=== PATIENT | female | born 1965 | race Caucasian/White ===

== ENCOUNTER 2016-11-16 22:18 | Emergency (ER) | payer OTHER ==
[~2016-11-16] VITALS: Ht 167.6 cm; Wt 86.2 kg
[~2016-11-16 22:18] MED LIST: TAMIFLU 75MG75 MG PO; TESSALON PERLE100 MG PO
--- NOTE | 2016-11-16 23:17 | RADIOLOGY REPORT ---
EXAMINATION: XR TOES, RIGHT CLINICAL INFORMATION: Pain and swelling, fifth toe injury COMPARISON: None TECHNIQUE: 3 views of the right toes were obtained. FINDINGS: Articular alignment is anatomic. On the oblique view there is suggestion of cortical disruption at the base of the fifth distal phalanx, raising concern for a minimally displaced fracture in the setting of trauma. There is chronic appearing cortical irregularity at the head of the fifth proximal phalanx. IMPRESSION: Suggestion of a minimally displaced fracture at the base of the fifth distal phalanx.
--- NOTE | 2016-11-16 23:41 | ED ANKLE/FOOT INJURY COMPLAINT ---
History of Present Illness General Chief Complaint: Foot or Ankle Injury Stated Complaint: R FOOT AND TOE INJURY Source: patient, old records Exam Limitations: no limitations Vital Signs & Intake/Output Vital Signs & Intake/Output Vital Signs Date Time Temp Pulse Resp B/P B/P Pulse O2 O2 Flow FiO2 Mean Ox Delivery Rate 11/16 2355 98.1 72 17 114/74 97 Room Air 11/16 2221 98.4 71 18 115/75 97 Room Air ED Intake and Output 11/17 0000 11/16 1200 Intake Total Output Total Balance Patient 190 lb Weight Weight Reported by Patient Measurement Method Allergies Coded Allergies: erythromycin base (Intermediate, HIVES ON FACE 08/16/15) tetracycline (Intermediate, HIVES ON FACE 08/16/15) clarithromycin (From BIAXIN) (Intermediate, VOMITING 08/16/15) Reconcile Medications Benzonatate (Tessalon Perle) 100 MG SGL 1-2 TAB PO TID PRN COUGH Oseltamivir Phosphate (Tamiflu 75MG) 75 MG CAP 1 TAB PO BID INFLUENZA A Triage Note: PT TO TRIAGE WITH C/O R 5TH TOE PAIN AND SWELLING S/P TRIPPED ON DOOR HOLDING ROCK AT [employer]. ICE PACK PROVIDED. 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 Triage Nurses Notes Reviewed? yes Occurred: just prior to arrival Duration: hour(s): (2), constant, waxing and waning Timing: recent history Severity: mild, moderate Severity Numbers: 4 Pain/Injury Location: Right: 5th toe. Method of Injury: direct blow Modifying Factors: Worsens With: other (PALPATION). Associated Symptoms: none HPI: 51-year-old female presents to ER for evaluation complaining of right fifth toe pain after she states she tripped over a rock that was holding a gait (at a restaurant just prior to arrival earlier tonight. She now presents with constant waxing and waning in intensity pain over her fifth toe she is not taken anything for symptoms pain is improved with ice. Pain is worse with weightbearing. Past History Travel History Traveled to [place] past 21 day No Medical History Any Pertinent Medical History? 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 No Review of Systems Review of Systems Constitutional: Reports: see HPI. All Other Systems: Reviewed and Negative Comments Review of systems: See HPI, All other systems negative. Constitutional, no chills no fever, no malaise HEENT: No visual changes no sore throat no congestion Cardiovascular: No chest pain , no palpitation Skin: no rashes, no change in skin Respiratory: No dyspnea no cough no sputum GI: No nausea no vomiting Muscle skeletal: joint pain, no joint swelling, no back pain, no neck pain, Neurologic: No numbness no headache Psych: No stress Heme/endocrine: No bruising Immunology: No lymphadenopathy Physical Exam Physical Exam General Appearance: well developed/nourished, no apparent distress, alert, awake Leg/Knee/Thigh Left: normal range of motion Comments: Well-developed well-nourished patient in no apparent distress. HEENT: Atraumatic, extraocular motion intact Neck: Supple, FROM Back: FROM Cardiovascular: Regular rate and rhythms Respiratory: No respiratory distress. Patient speaking in full complete sentences. Breath sounds clear to auscultation bilaterally: NO W/R/R Upper Extremities: full range of motion Lower extremities the foot is atraumatic nontender there is no ecchymosis there is mild tenderness over the dorsal aspect of the right fifth phalanx, no ecchymosis no deformity no subungual hematoma Neuro: awake, alert, and oriented to person, place and time. There were no obvious focal neurologic abnormalities. Skin: Warm & dry;No appreciable rash on exposed skin Psych: Mood affect normal, normal memory normal judgment. Progress Differential Diagnosis: fracture, dislocation, sprain, contusion, compartmental syndrome Plan of Care: Current Medications Sig/Claudia Start time Last Medication Dose Stop Time Status Admin Ibuprofen 800 MG ONCE ONE 11/16 2345 UNVr (Motrin) 11/16 2346 Patient medicated Motrin I discussed with her x-ray results I discussed with the patient at length all of their results. I had an extensive conversation regarding need for close follow up with their primary care physician this week as well as return precautions. I answered all of their questions, they feel comfortable with the plan and follow-up care. (JANET SMITH,DORI) Diagnostic Imaging: Viewed by Me: Radiology Read. Discussed w/RAD: Radiology Read. Radiology Impression: PATIENT: JIM,DEVYN L PRESENT AGE: 51 PATIENT ACCOUNT NO: [id number] : 66 LOCATION: [facility] ORDERING PHYSICIAN: KAYLA SWANSON DO (TBS) SERVICE DATE: 11/16/16 EXAM TYPE: RAD - XRY-TOES, RIGHT EXAMINATION: XR TOES, RIGHT CLINICAL INFORMATION: Pain and swelling, fifth toe injury COMPARISON: None TECHNIQUE: 3 views of the right toes were obtained. FINDINGS: Articular alignment is anatomic. On the oblique view there is suggestion of cortical disruption at the base of the fifth distal phalanx, raising concern for a minimally displaced fracture in the setting of trauma. There is chronic appearing cortical irregularity at the head of the fifth proximal phalanx. IMPRESSION: Suggestion of a minimally displaced fracture at the base of the fifth distal phalanx. DICTATED BY: NEHEMIAS ESPINOZA MD DATE/ TIME DICTATED:11/16/162310 FISHERY BIOLOGIST:JONNY DATE/TIME TRANSCRIBED: 11/16/162310 CONFIDENTIAL, DO NOT COPY WITHOUT APPROPRIATE AUTHORIZATION. < Electronically signed in Other Vendor System> SIGNED BY: NEHEMIAS ESPINOZA MD 11/16/162316 Departure Departure Time of Disposition: 2346 Disposition: HOME OR SELF CARE Condition: Stable Clinical Impression Primary Impression: Toe fracture Referrals: JIN ALICEA MD (PCP/Family) Additional Instructions: Rest ice Tylenol Motrin every 4-6 hours as needed for pain. Follow-up with your primary care physician return to ER with any concerns. Departure Forms: Customer Survey General Discharge Information
[2016-11-16 23:55] VITALS: BP 114/74
== END 2016-11-16 23:56 ==
LOC: ERH 22:18
DX: S92.531A Displaced fracture of distal phalanx of right lesser toe(s), initial encounter for closed fracture (principal); W18.09XA Striking against other object with subsequent fall, initial encounter; Y92.511 Restaurant or cafe as the place of occurrence of the external cause; Y93.9 Activity, unspecified
CPT/HCPCS: 73660-RT